=== PATIENT | male | born 1995 | race Caucasian/White ===

== ENCOUNTER 2020-09-22 13:36 | Emergency (ER) | payer OTHER ==
[~2020-09-22] VITALS: Ht 175.3 cm; Wt 79.5 kg
[2020-09-22] MEDS ORDERED: PRED10TA23 PO (16:28)
[2020-09-22 16:35] VITALS: BP 134/64
== END 2020-09-22 16:36 | disposition home or self-care (01) ==
LOC: ER 13:37
DX: L23.7 Allergic contact dermatitis due to plants, except food (principal); Z79.899 Other long term (current) drug therapy
CPT/HCPCS: 99283